=== PATIENT | female | born 1990 | race Caucasian/White ===

== ENCOUNTER 2018-03-08 13:22 | Emergency (ER) | payer OTHER ==
[~2018-03-08] VITALS: Ht 160 cm; Wt 56.8 kg
[2018-03-08 14:10] VITALS: BP 123/93
[2018-03-08] MEDS ORDERED: MONT10TA21 PO (14:26)
[2018-03-08] MEDS ORDERED: GABA-531 PO (14:26)
[2018-03-08] MEDS ORDERED: OMEP20 PO (14:26)
[2018-03-08] MEDS ORDERED: CARB200T6 PO (14:26)
[2018-03-08] MEDS ORDERED: FLUT16H NASAL (14:26)
[2018-03-08] MEDS ORDERED: LEVE500T53 PO (14:26)
[2018-03-08] MEDS ORDERED: ACETAMINOPHEN 500 MG TABLET PO ONE (15:00)
[2018-03-08] MEDS ORDERED: LIDOCAINE 1% 10 ML VIAL INJ ONE (15:00)
[2018-03-08] MEDS ORDERED: SULFAMETHOX/TRIMETH DS 800-160 MG/TABLET PO ONE (15:45)
[2018-03-08] MEDS ORDERED: CEPHALEXIN MONOHYDRATE 500 MG CAPSULE PO ONE (15:45)
== END 2018-03-08 16:29 | disposition home or self-care (01) ==
LOC: EMS 13:24
DX: L02.412 Cutaneous abscess of left axilla (principal); K21.9 Gastro-esophageal reflux disease without esophagitis; J45.909 Unspecified asthma, uncomplicated; Z88.5 Allergy status to narcotic agent; Z88.6 Allergy status to analgesic agent
CPT/HCPCS: 10060; 99284; J3490